=== PATIENT | female | born 1930 | race Caucasian/White ===

== ENCOUNTER → 2016-08-18 | Outpatient (CLI) | payer OTHER ==
[~2016-08-18] MED LIST: ATEN50TA41 PO; BIOT25004 PO; CEPH-368 PO; CHOL200012 PO; FURO40TA6 PO; GABA300C10 PO; LUTE20TA PO; MULT-709 PO; OXYC5TAB2 PO; OXYC5TAB3 PO; POTA20TA14 PO; TRIA1CAP3 PO
== END | disposition home or self-care (01) ==
LOC: ROC 14:59
PROVIDERS: ATTEND Radiology Radiation Oncology
DX: C50.212 Malignant neoplasm of upper-inner quadrant of left female breast (principal); C50.411 Malignant neoplasm of upper-outer quadrant of right female breast
CPT/HCPCS: 99212; G0463

== ENCOUNTER → 2018-04-26 | Outpatient (CLI) | payer MEDICARE, OTHER ==
[~2018-04-26] MED LIST changes: -BIOT25004 PO; +BIOT25005 PO; -CHOL200012 PO; +CHOL200074 PO
[2018-04-26 13:24] LABS: ANION GAP 4 mmol/L (5-15); CHLORIDE 106 mmol/L (98-107); CREATININE 0.89 mg/dL (0.55-1.02)
== END | disposition home or self-care (01) ==
LOC: CFH 10:51
PROVIDERS: ATTEND Internal Medicine Cardiovascular Disease
DX: R60.9 Edema, unspecified (principal)
CPT/HCPCS: 36415; 80048

== ENCOUNTER → 2018-05-02 | Outpatient (CLI) | payer MEDICARE, OTHER | END | disposition home or self-care (01) | LOC: WOUND 15:03 | PROVIDERS: ATTEND Nurse Practitioner Family | DX: I87.302 Chronic venous hypertension (idiopathic) without complications of left lower extremity (principal); R01.1 Cardiac murmur, unspecified; R60.0 Localized edema; I10 Essential (primary) hypertension; Z87.891 Personal history of nicotine dependence; Z85.3 Personal history of malignant neoplasm of breast | CPT/HCPCS: 99215 ==

== ENCOUNTER → 2018-05-10 | Outpatient (CLI) | payer MEDICARE, OTHER | END | disposition home or self-care (01) | LOC: CVU 12:33 | PROVIDERS: ATTEND Nurse Practitioner Family | DX: I70.203 Unspecified atherosclerosis of native arteries of extremities, bilateral legs (principal); I83.93 Asymptomatic varicose veins of bilateral lower extremities; Z85.3 Personal history of malignant neoplasm of breast; Z90.13 Acquired absence of bilateral breasts and nipples | CPT/HCPCS: 93922; 93925; 93970 ==

== ENCOUNTER 2019-05-09 12:33 | Day surgery (SDC) | payer MEDICARE, OTHER ==
[~2019-05-09] VITALS: Ht 154.9 cm; Wt 70.5 kg
[~2019-05-09 12:33] MED LIST changes: +ANAS1TAB PO; +APIX5TAB PO; +RIVA1TAB PO; +SPIR25TA5 PO
[2019-05-09 13:13] VITALS: BP 131/100
[2019-05-09] MEDS ORDERED: DIPHENHYDRAMINE 50 MG/ML, 1ML ONE (13:29)
[2019-05-09] MEDS ORDERED: DIPHENHYDRAMINE 50 MG/ML, 1ML IVPush ONE (13:30)
[2019-05-09] MEDS ORDERED: FURO20TA3 PO (13:41)
[2019-05-09] MEDS ORDERED: MIDAZOLAM 1 MG/ML, 2ML ONE (15:43)
[2019-05-09] MEDS ORDERED: LIDOCAINE 2%, 20ML ONE (15:43)
[2019-05-09] MEDS ORDERED: FENTANYL PF 100 MCG/2ML ONE (15:43)
== END 2019-05-09 17:43 | disposition home or self-care (01) ==
LOC: CACL 12:33
PROVIDERS: ATTEND Internal Medicine Cardiovascular Disease
DX: I50.9 Heart failure, unspecified (principal); I27.20 Pulmonary hypertension, unspecified; I48.91 Unspecified atrial fibrillation
CPT/HCPCS: 93451; 99156; C1894; J1200; J2250; J3010

== ENCOUNTER → 2020-12-30 | Outpatient (CLI) | payer MEDICARE, OTHER | END | disposition home or self-care (01) | LOC: WOUND 14:35 | PROVIDERS: ATTEND Nurse Practitioner Family | DX: L59.8 Other specified disorders of the skin and subcutaneous tissue related to radiation (principal); L03.313 Cellulitis of chest wall; L58.9 Radiodermatitis, unspecified; I11.0 Hypertensive heart disease with heart failure; I50.23 Acute on chronic systolic (congestive) heart failure; I48.91 Unspecified atrial fibrillation; E78.00 Pure hypercholesterolemia, unspecified; G47.30 Sleep apnea, unspecified; Z79.01 Long term (current) use of anticoagulants; Z79.899 Other long term (current) drug therapy; Z85.3 Personal history of malignant neoplasm of breast; Z87.891 Personal history of nicotine dependence; Z90.710 Acquired absence of both cervix and uterus; Y84.2 Radiological procedure and radiotherapy as the cause of abnormal reaction of the patient, or of later complication, without mention of misadventure at the time of the procedure ==